=== PATIENT | female | born 2000 ===

== ENCOUNTER 2025-02-28 15:46 | Outpatient (CLI) | payer OTHER | END 2025-02-28 15:52 | disposition home or self-care (01) | LOC: PRENATAL 15:46 | PROVIDERS: ATTEND Obstetrics & Gynecology Maternal & Fetal Medicine | DX: O44.00 Complete placenta previa NOS or without hemorrhage, unspecified trimester (principal); O34.219 Maternal care for unspecified type scar from previous cesarean delivery; Z3A.25 25 weeks gestation of pregnancy ==

== ENCOUNTER 2025-04-10 14:42 | Outpatient (CLI) | payer OTHER | END 2025-04-10 14:43 | disposition home or self-care (01) | LOC: PRENATAL 14:42 | PROVIDERS: ATTEND Obstetrics & Gynecology Maternal & Fetal Medicine | DX: O26.849 Uterine size-date discrepancy, unspecified trimester (principal); O36.8199 Decreased fetal movements, unspecified trimester, other fetus; O34.219 Maternal care for unspecified type scar from previous cesarean delivery; Z3A.32 32 weeks gestation of pregnancy ==